=== PATIENT | male | born 1980 | race Caucasian/White ===

== ENCOUNTER 2016-11-08 13:13 | Emergency (ER) | payer OTHER ==
[~2016-11-08] VITALS: Ht 182.9 cm; Wt 108.9 kg
[2016-11-08 13:46] VITALS: BP 143/91
[2016-11-08] MEDS ORDERED: ALPRAZOLAM2 M2 PO (14:02)
[2016-11-08] MEDS ORDERED: DEXTROAMP-AMPHE20 MG PO (14:02)
[2016-11-08] MEDS ORDERED: FLUOXETINE HCL40 M1 PO (14:03)
--- NOTE | 2016-11-08 14:45 | ED GENERAL ADULT ---
History of Present Illness General Chief Complaint: General Adult Stated Complaint: MED REFILL Source: patient Exam Limitations: no limitations Vital Signs & Intake/Output Vital Signs & Intake/Output Vital Signs Date Time Temp Pulse Resp B/P B/P Pulse O2 O2 Flow FiO2 Mean Ox Delivery Rate 11/08 1346 98.4 91 18 143/91 99 Room Air Allergies Coded Allergies: No Known Allergies (11/08/16) Reconcile Medications Alprazolam 2 MG TABLET 1 TAB PO 4 TIMES/DAY ANXIETY (Reported) Alprazolam (Xanax) 2 MG TABLET 1 TAB PO BIDP PRN ANXIETY Dextroamphetamine/Amphetamine (Dextroamp-Amphetamin 20 MG Tab) 20 MG TABLET 1 TAB PO DAILY PRN ADHD (Reported) Fluoxetine HCl 40 MG CAPSULE 1 CAP PO BID MENTAL HEALTH (Reported) Triage Note: REQUESTING REFILL OF XANAX, RAN OUT YESTERDAY. TAKING 8 MG DAILY X 5 YEARS. STATES HE HAS AN PRESCRIPTION FROM HIS PSYCHIATRIST (WHO RETIRED), DR. Sravani MORTON ([facility]) WHICH WAS NOT FILLED BY HIS PHARMACY. HAS APPOINTMENT WITH NEW PSYCHIATRIST THE END OF NOVEMBER. Triage Nurses Notes Reviewed? yes Onset: Abrupt Duration: constant Timing: recent history Severity: mild Severity Numbers: 1 HPI: Patient is a 36-year-old male with a past medical history of ADHD and anxiety who presents to emergency room stating that for approximately 5 years he's been on Xanax 2 mg 4 times a day or he states that his previous psychiatric provider has recently retired or patient was prescribed recently a Xanax refill of medications however this ran out by his primary care doctor. Patient doesn't have a establishment till next month of a new psychiatrist and was requesting Xanax medication refill. Patient denies any suicide or homicide ideation denies any illness and denies at this time any withdrawal symptoms. (MANISH SOLIMAN) Past History Travel History Traveled to [place] past 21 day No Medical History Any Pertinent Medical History? see below for history Psychiatric: anxiety Surgical History Surgical History: non-contributory Psychosocial History What is your primary language Armenian Tobacco Use: Never used ETOH Use: occasional use Family History Hx Contributory? No (MANISH SOLIMAN) Review of Systems Review of Systems Constitutional: Reports: no symptoms. EENTM: Reports: no symptoms. Respiratory: Reports: no symptoms. Cardiovascular: Reports: no symptoms. GI: Reports: no symptoms. Genitourinary: Reports: no symptoms. Musculoskeletal: Reports: no symptoms. Skin: Reports: no symptoms. Neurological/Psychological: Reports: see HPI, anxiety. Hematologic/Endocrine: Reports: no symptoms. Immunologic/Allergic: Reports: no symptoms. All Other Systems: Reviewed and Negative (MANISH SOLIMAN) Physical Exam Physical Exam General Appearance: no apparent distress, alert, comfortable Comments: Well-developed well-nourished person in no acute distress HEENT: Normal EENT exam, Neck: Supple, no lymphadenopathy, normal range of motion without pain or tenderness Back: Nontender, no CVA tenderness. Cardiovascular: Regular rate and rhythms no murmurs rubs or gallops, normal JVP Respiratory: Chest nontender. No respiratory distress.breath sounds clear to auscultation bilaterally Abdomen: Soft, nontender nondistended, no appreciable organomegaly. Normal bowel sounds. No ascites Extremity: No edema, no calf tenderness to palpation, normal and equal pulses. Neuro: Alert oriented x3, motor sensory normal, Skin: No appreciable rash on exposed skin, skin is warm and dry. Psych: Mood and affect is normal, memory and judgment is normal. Core Measures ACS in differential dx? No CVA/TIA Diagnosis: No Severe Sepsis Present: No Septic Shock Present: No (MANISH SOLIMAN) Progress Differential Diagnoses I considered the following diagnoses in my evaluation of the patient: [Anxiety, depression, medication refill] Plan of Care: Patient currently is in no apparent distress his confirm PRESCRIPTIONS OF previous Xanax. Patient was given a copy of LIST OF psychiatric provider referral from the emergency room. Upon discharge patient looks well no apparent distress Patient was strongly advised to follow-up with psychiatric provider for medication refill Initial ED EKG: none (MANISH SOLIMAN) Departure Departure Disposition: HOME OR SELF CARE Condition: Stable Clinical Impression Primary Impression: Anxiety Secondary Impressions: Medication refill Referrals: PATIENT HAS NO PRIMARY CARE DR (PCP/Family) Additional Instructions: As discussed begin the prescription of Xanax as directed for your symptoms. Continue all medications as directed. Please follow-up with your established psychiatrist appointment next month or call the list of behavioral medicine providers given to the emergency room. If symptoms worsen return to emergency room Departure Forms: Customer Survey General Discharge Information Prescriptions: Current Visit Scripts Alprazolam (Xanax) 1 TAB PO BIDP PRN ANXIETY #20 TAB (MANISH SOLIMAN) PA/WAREHOUSE AND RECEIVING SUPERVISOR Co-Sign Statement Statement: ED Attending supervision documentation- [] I saw and evaluated the patient. I have also reviewed all the pertinent lab results and diagnostic results. I agree with the findings and the plan of care as documented in the PA's/WAREHOUSE AND RECEIVING SUPERVISOR's documentation. [X] I have reviewed the ED Record and agree with the PA's/WAREHOUSE AND RECEIVING SUPERVISOR's documentation. [] Additions or exceptions (if any) to the PAs/WAREHOUSE AND RECEIVING SUPERVISOR's note and plan are summarized below: [] (CHARLY HILL DO) Critical Care Note Critical Care Note Critical Care Time: non-applicable (MANISH SOLIMAN)
[2016-11-08] MEDS ORDERED: XANAX2 M1 PO (15:11)
== END 2016-11-08 15:26 ==
LOC: ERH 13:13
DX: F41.9 Anxiety disorder, unspecified (principal)